=== PATIENT | female | born 1940 | race Caucasian/White ===

== ENCOUNTER 2018-11-01 14:07 | Emergency (ER) | payer MEDICARE ==
[~2018-11-01] VITALS: Ht 170.2 cm; Wt 89.1 kg
[2018-11-01 15:39] LABS: HEMATOCRIT 39.4 % (37.0-47.0); HEMOGLOBIN 13.2 g/dl (12.0-16.0); IMMATURE GRANULOCYTES 0.7 % (0.0-5.0); MEAN CELL VOLUME 97.5 fL CALC (80.0-100.0); MEAN CORPUSCULAR HGB 32.7 pG CALC (26.0-32.0); MEAN CORPUSCULAR HGB CONC 33.5 g/L CALC (32.0-36.0); NEUT# 9.09 thou/uL (2.00-7.15); RED BLOOD COUNT 4.04 mill/uL (4.20-5.60); RED CELL DISTRI WIDTH 13.7 % (11.5-15.5)
[2018-11-01 16:06] LABS: CREATININE 1.2 mg/dL (0.5-1.0); POTASSIUM 3.8 mmol/l (3.5-5.1)
[2018-11-01 16:14] LABS: URINE BILIRUBIN - DIPSTICK NEGATIVE (NEGATIVE); URINE BLOOD DIPSTICK NEGATIVE (NEGATIVE); URINE COLOR YELLOW; URINE GLUCOSE - DIPSTICK NEGATIVE (NEGATIVE); URINE KETONE NEGATIVE (NEGATIVE); URINE LEUK ESTERASE NEGATIVE (NEGATIVE); URINE NITRITE - DIPSTICK NEGATIVE (Negative); URINE PROTEIN - DIPSTICK NEGATIVE (NEG-TRACE); URINE UROBILINOGEN - DIPSTICK 0.2 E.U./dL (0.2)
[2018-11-01 16:39] VITALS: BP 165/70
[2018-11-01] MEDS ORDERED: LEVOTHYROXIN75 MC1 PO (18:35)
[2018-11-01] MEDS ORDERED: ASPIRIN81 MG PO (18:36)
[2018-11-01] MEDS ORDERED: LITHIUM CARB300 M2 PO (18:36)
[2018-11-01] MEDS ORDERED: B121000 MCG PO (18:37)
[2018-11-01] MEDS ORDERED: D31000 UNIT PO (18:37)
[2018-11-01] MEDS ORDERED: ATORVASTATIN CA40 MG PO (18:38)
== END 2018-11-01 16:50 | disposition home or self-care (01) ==
LOC: ED 14:07
PROVIDERS: Family Medicine
DX: R32 Unspecified urinary incontinence (principal); R19.7 Diarrhea, unspecified; R35.0 Frequency of micturition; R00.1 Bradycardia, unspecified; Z04.3 Encounter for examination and observation following other accident; F03.90 Unspecified dementia, unspecified severity, without behavioral disturbance, psychotic disturbance, mood disturbance, and anxiety; W18.39XA Other fall on same level, initial encounter; Y92.89 Other specified places as the place of occurrence of the external cause

== ENCOUNTER 2018-11-01 18:12 | Emergency (ER) | payer MEDICARE ==
[~2018-11-01] VITALS: Ht 170.2 cm; Wt 90.0 kg
[2018-11-01] MEDS ORDERED: LEVOTHYROXIN75 MC1 PO (18:35)
[2018-11-01] MEDS ORDERED: ASPIRIN81 MG PO (18:36)
[2018-11-01] MEDS ORDERED: LITHIUM CARB300 M2 PO (18:36)
[2018-11-01] MEDS ORDERED: D31000 UNIT PO (18:37)
[2018-11-01] MEDS ORDERED: B121000 MCG PO (18:37)
[2018-11-01] MEDS ORDERED: ATORVASTATIN CA40 MG PO (18:38)
[2018-11-01 19:20] VITALS: BP 187/80
== END 2018-11-01 19:35 | disposition home or self-care (01) ==
LOC: ED 18:12
DX: Z04.3 Encounter for examination and observation following other accident (principal); W18.39XA Other fall on same level, initial encounter; Y92.89 Other specified places as the place of occurrence of the external cause; F03.90 Unspecified dementia, unspecified severity, without behavioral disturbance, psychotic disturbance, mood disturbance, and anxiety

== ENCOUNTER 2018-11-03 12:31 | Emergency (ER) | payer MEDICARE ==
[~2018-11-03] VITALS: Ht 170.2 cm; Wt 100.0 kg
[~2018-11-03 12:31] MED LIST: ASPIRIN81 MG PO; ATORVASTATIN CA40 MG PO; B121000 MCG PO; D31000 UNIT PO; LEVOTHYROXIN75 MC1 PO; LITHIUM CARB300 M2 PO
[2018-11-03 13:51] LABS: ALBUMIN 4.2 g/dL (3.2-5.0); BILIRUBIN, TOTAL 1.5 mg/dL (0.0-1.4); CREATININE 1.5 mg/dL (0.5-1.0); POTASSIUM 4.5 mmol/l (3.5-5.1); TOTAL PROTEIN 7.1 g/dL (6.3-8.2)
[2018-11-03 14:03] LABS: HEMATOCRIT 40.7 % (37.0-47.0); HEMOGLOBIN 13.4 g/dl (12.0-16.0); IMMATURE GRANULOCYTES 0.5 % (0.0-5.0); MEAN CORPUSCULAR HGB 32.6 pG CALC (26.0-32.0); MEAN CORPUSCULAR HGB CONC 32.9 g/L CALC (32.0-36.0); NEUT# 8.85 thou/uL (2.00-7.15); RED BLOOD COUNT 4.11 mill/uL (4.20-5.60); RED CELL DISTRI WIDTH 13.6 % (11.5-15.5)
[2018-11-03] MEDS ORDERED: UNKNOWN CHOLESTEROL (17:18)
[2018-11-03 17:20] LABS: URINE BILIRUBIN - DIPSTICK NEGATIVE (NEGATIVE); URINE BLOOD DIPSTICK TRACE-INTACT (NEGATIVE); URINE COLOR YELLOW; URINE GLUCOSE - DIPSTICK NEGATIVE (NEGATIVE); URINE KETONE NEGATIVE (NEGATIVE); URINE PROTEIN - DIPSTICK NEGATIVE (NEG-TRACE); URINE UROBILINOGEN - DIPSTICK 0.2 E.U./dL (0.2)
[2018-11-03 17:21] LABS: URINE LEUK ESTERASE MODERATE (NEGATIVE); URINE NITRITE - DIPSTICK POSITIVE (Negative)
[2018-11-03 17:23] LABS: BARBITURATES NEGATIVE (NEGATIVE); COCAINE NEGATIVE (NEGATIVE); METHADONE NEGATIVE (NEGATIVE); TETRAHYDROCANNABIONOL NEGATIVE (NEGATIVE); TRICYLIC ANTIDEPRESSANTS NEGATIVE (NEGATIVE)
[2018-11-03 17:24] LABS: OXCYCODONE NEGATIVE (NEGATIVE)
[2018-11-03 17:33] LABS: URINE BACTERIA MANY hpf; URINE RBC 0-2 RBC/hpf (0-5); URINE SQUAMOUS EPITHELIAL CELL FEW EPI/hpf (0-FEW)
[2018-11-03 18:42] VITALS: BP 192/77
== END 2018-11-03 18:35 | disposition short-term general hospital (02) ==
LOC: ED 12:31 → ED-I 13:00 → ED 18:35
PROVIDERS: Emergency Medicine
DX: R41.82 Altered mental status, unspecified (principal); R00.1 Bradycardia, unspecified; N39.0 Urinary tract infection, site not specified; F03.90 Unspecified dementia, unspecified severity, without behavioral disturbance, psychotic disturbance, mood disturbance, and anxiety; F31.9 Bipolar disorder, unspecified; B96.20 Unspecified Escherichia coli [E. coli] as the cause of diseases classified elsewhere

== ENCOUNTER 2019-01-23 17:49 | Inpatient (IN) | payer MEDICARE ==
[~2019-01-23] VITALS: Ht 170.2 cm; Wt 95.0 kg
[~2019-01-23 17:49] MED LIST changes: +UNKNOWN CHOLESTEROL
--- NOTE | 2019-01-23 17:49 | NUR ---
PT TO ROOM VIA EMS STRETCHER.
--- NOTE | 2019-01-23 18:40 | NUR ---
MARIAMA CARE COMPLETED, URINE SAMPLE COLLECTED VIA STRAIGHT CATH, URINE SAMPLE NOTED TO BE PALE YELLOW, CLOUDY. PATIENT TOLERATED WELL.
[2019-01-23 18:44] LABS: HEMATOCRIT 37.2 % (37.0-47.0); HEMOGLOBIN 11.9 g/dl (12.0-16.0); IMMATURE GRANULOCYTES 0.6 % (0.0-5.0); MEAN CELL VOLUME 101.1 fL CALC (80.0-100.0); MEAN CORPUSCULAR HGB 32.3 pG CALC (26.0-32.0); NEUT# 7.58 thou/uL (2.00-7.15); RED BLOOD COUNT 3.68 mill/uL (4.20-5.60); RED CELL DISTRI WIDTH 14.1 % (11.5-15.5)
[2019-01-23 18:51] LABS: URINE BILIRUBIN - DIPSTICK NEGATIVE (NEGATIVE); URINE BLOOD DIPSTICK MODERATE (NEGATIVE); URINE COLOR YELLOW; URINE GLUCOSE - DIPSTICK NEGATIVE (NEGATIVE); URINE KETONE NEGATIVE (NEGATIVE); URINE PROTEIN - DIPSTICK 100 mg/dL (NEG-TRACE); URINE UROBILINOGEN - DIPSTICK 0.2 E.U./dL (0.2)
[2019-01-23 18:52] LABS: URINE LEUK ESTERASE MODERATE (NEGATIVE); URINE NITRITE - DIPSTICK POSITIVE (Negative)
[2019-01-23 19:00] LABS: URINE BACTERIA MANY hpf; URINE RBC TNTC RBC/hpf (0-5); URINE SQUAMOUS EPITHELIAL CELL FEW EPI/hpf (0-FEW); URINE WBC TNTC WBC/hpf (0-5)
[2019-01-23 19:02] LABS: ALBUMIN 4.1 g/dL (3.2-5.0); CREATININE 1.4 mg/dL (0.5-1.0); POTASSIUM 4.4 mmol/l (3.5-5.1); TOTAL PROTEIN 7.4 g/dL (6.3-8.2)
--- NOTE | 2019-01-23 19:20 | NUR ---
PATIENT RETURNS FROM CT SCAN. TEMP 101.5. UPDATED ON WAIT TIME. VERBAL UNDERSTANDING. WILL CONTINUE TO MONITOR.
--- NOTE | 2019-01-23 19:30 | NUR ---
BEDSIDE REPORT GIVEN TO ENRIKE CARRASCO. CARE RELINQUISHED.
--- NOTE | 2019-01-23 19:35 | NUR ---
IN ROOM INTRODUCED SELF TO PT. NO C/O.
[2019-01-23] MEDS ORDERED: ATORVASTATIN CA40 MG PO (21:21)
[2019-01-23] MEDS ORDERED: CLONAZEPAM0.5 M1 PO (21:22)
--- NOTE | 2019-01-23 21:22 | NUR ---
PT. BP 92/50 MD AWARE.
[2019-01-23] MEDS ORDERED: ZESTRIL5 M1 PO (21:23)
[2019-01-23] MEDS ORDERED: KLONOPIN0.5 MG PO (21:23)
[2019-01-23] MEDS ORDERED: ZYPREXA PO (21:24)
--- NOTE | 2019-01-23 21:47 | NUR ---
Admission Note Report Given to: SHERWIN MALIN Transported by: Wheelchair X Stretcher Transported with: X Nurse Transporter X Patent IV O2 Representative Personal Service
--- NOTE | 2019-01-23 21:48 | NUR ---
PT. TO [facility] VIA STRETCHER.
--- NOTE | 2019-01-23 22:00 | NUR ---
PT ARRIVED TO FLOOR VIA STRETCHER. PT ACCOMPANIED BY ER STAFF AND . PT ALERT AND ORIENTED TO SELF, CONFUSION NOTED. PT NON-AMBULATORY AT THIS TIME R/T WEAKNESS. PT TRANSFERED FROM STRETCHER TO BED X4 PERSON ASSIST. PT DENIES ANY PAIN OR DISCOMFORT. INCONTINENT OF BOWEL AND BLADDER AT THIS TIME. MARIAMA-CARE PROVIDED ALONG WITH LINEN CHANGE. IV SITES APPEAR HEALTHY. SKIN INTACT. ORIENTED PT TO ROOM AND CALL LIGHT SYSTEM. BED ALARM FOR SAFETY. DISCUSSED POC AND SAFETY PRECAUTIONS WITH PT AND , BOTH VERBALIZED UNDERSTANDING. CALL LIGHT WITHIN REACH. WILL CONTINUE TO MONITOR.
[2019-01-23 22:15] VITALS: BP 96/51
[2019-01-24] VITALS (10 sets, daily range): BP systolic 70–137; BP diastolic 40–68
--- NOTE | 2019-01-24 02:25 | NUR ---
PT FOUND TO BED UNRESPONSIVE TO VERBAL STIMULI. VS OBTAINED PT BP 70/43 WITH HR OF 42. PT PLACED IN TRANDELENBURG POSITION. ER PHYSICIAN NOTIFIED AND ORDERS RECIEVED FOR 1 LITER BOLUS OF NS. PT RESPONSIVE TO PAINFUL STIMULI.
--- NOTE | 2019-01-24 03:33 | NUR ---
BOLUS COMPLETE. PT MORE ALERT TO VERBAL STIMULI AND ABLE TO ANSWER QUESTIONS, ELECTROMYOGRAPHIC TECHNICIAN STRONG AND EQUAL. RESPIRATIONS EVEN AND UNLABORED. PT REMAINS IN TRENDELENBURG POSITION. BP CURRENTLY 97/58 AND HR 55. NOTIFIED PLATING TECHNICIAN PHYSICIAN NEW ORDERS RECIEVED. MANAGER LPN WILL INIATE ONCE PROFILED FROM PHARMACY AND CONTINUE TO MONITOR.
--- NOTE | 2019-01-24 04:32 | NUR ---
SECOND BOLUS COMPLETE. PT REMAINS IN TRENDELENBURG POSITION. MANUAL BP 98/50 HR 55. PT ALERT AND RESPONSIVE. WILL CONTINUE TO MONITOR.
[2019-01-24 05:03] LABS: HEMATOCRIT 31.4 % (37.0-47.0); IMMATURE GRANULOCYTES 0.5 % (0.0-5.0); MEAN CORPUSCULAR HGB 32.8 pG CALC (26.0-32.0); MEAN CORPUSCULAR HGB CONC 31.5 g/L CALC (32.0-36.0); RED BLOOD COUNT 3.02 mill/uL (4.20-5.60); RED CELL DISTRI WIDTH 13.5 % (11.5-15.5)
[2019-01-24 05:27] LABS: HEMOGLOBIN 9.9 g/dl (12.0-16.0)
[2019-01-24 05:28] LABS: BAND 8 % (0-8); MANUAL DIFFERENTIAL YES; PLATELET COUNT 159 thou/uL (130-400)
[2019-01-24 05:29] LABS: HYPOCHROMIA FEW; MICROCYTOSIS FEW; PLATELET ESTIMATE NORMAL
[2019-01-24 06:02] LABS: ALBUMIN 2.6 g/dL (3.2-5.0); BILIRUBIN, TOTAL 0.5 mg/dL (0.0-1.4); CREATININE 1.8 mg/dL (0.5-1.0); MAGNESIUM 1.9 mg/dL (1.6-2.3); POTASSIUM 4.4 mmol/l (3.5-5.1)
--- NOTE | 2019-01-24 07:08 | NUR ---
PT RESTING IN BED IVF INFUSING. PT A&Ox1. BED ALARM IN PLACE FOR SAFETY. DISCUSSED POC, PT VERBALIZED UNDERSTANDING ABLE TO OBEY COMMANDS. VSS, ASSESSMENT COMPLETED AT THIS TIME. CALL LIGHT IN REACH,CONTINUE TO MONITOR.
--- NOTE | 2019-01-24 08:37 | NUR ---
PT IN BED, C/O ANXIOUSNESS, PT IS TEARFUL. AND C/O PAIN MEDICATED WITH TYLENOL AND XANAX.PT HAVING TREMORS.PT HAD A BM, BELT LOOP MACHINE OPERATOR TO BEDSIDE, BED BATH PROVIDED. NEW [place] PLACED FOR PT. DAMASO LIGHT IN REACH,CONTINUE TO MONITOR.
--- NOTE | 2019-01-24 09:52 | NUR ---
PT RESTING IN BED, WITH EYES CLOSED, NO SIGNS OF DISTRESS NOTED, RESP EVEN AND UNLABORED. CALL LIGHT IN REACH,CONTINUE TO MONITOR.
--- NOTE | 2019-01-24 13:05 | NUR ---
PT STATES SHE WOULD LIKE TO GET OUT OF BED, ASSISTED BY COMMUNITY ASSOCIATE TO PLACE PT IN RECLINER AT BEDSIDE. ROOM. CALL LIGHT IN REACH,CONTINUE TO MONITOR.
--- NOTE | 2019-01-24 15:01 | NUR ---
PT ASSISTED BACK TO BED, NO SIGNS OF DISTRESS NOTED, RESP EVEN AND UNLABORED. CALL LIGHT IN REACH,CONTINUE TO MONITOR
--- NOTE | 2019-01-24 17:59 | NUR ---
PT EATING DINNER, AT BEDSIDE. CALL LIGHT IN REACH,CONTINUE TO MONITOR.
--- NOTE | 2019-01-24 20:36 | NUR ---
PT MEDICATED ORDERS PROVIDE AND ASSISTED TO BSC. AT BEDSIDE. INSTRUCTED TO CALL WHEN PT IS FINSIHED. REORIENTED PT TO SAFETY MEASURES NOT TO GET UP WITHOUT ASSISTANCE.
--- NOTE | 2019-01-25 03:00 | NUR ---
PT ASSISTED TO BEDSIDE COMMODE, BRIEF WAS VERY FULL OF URINE, MARIAMA CARE PROVIDED TO PT W/FRESH BRIEF PLACED ON PT. PT IS WEAK UPON AMBULATING JUST TO [facility] FROM SIDE OF BED. PT INCONTINENT OF URINE SHE IS TRANSFERRING. PT APPEARS CONFUSED AT THIS TIME CALLING OUT TO HER . ATTEMPTS WERE MADE TO REORIENT PT TO CIRCUMSTANCES AND TIME, SHE IS NOT AGITATED, JUST SOMEWHAT CONFUSED STILL. WILL CONTINUE TO REORIENT NEEDED. PT LEFT BACK IN BED AND BED ALARM ON W/CALL LIGHT W/IN REACH OF PT. LIGHTS ON LOW WITH TV ON LOW.
[2019-01-25 04:15] VITALS: BP 130/69
--- NOTE | 2019-01-25 05:25 | NUR ---
PT MEDICATED ORDERS PROVIDE, APPLESAUCE PROVIDED TO ASSIST HER SWALLOWING PILL FOLLOWED BY PO WATER. PT CONFUSED, BUT NOT AGITATED. PT REORIENTED TO CIRCUMSTANCE AND LOCATION. SHE PROCEEDED TO RETURN TO SLEEP I WAS LEAVING ROOM.
[2019-01-25 05:27] LABS: HEMATOCRIT 31.2 % (37.0-47.0); HEMOGLOBIN 9.8 g/dl (12.0-16.0); IMMATURE GRANULOCYTES 0.7 % (0.0-5.0); MEAN CELL VOLUME 103.3 fL CALC (80.0-100.0); MEAN CORPUSCULAR HGB 32.5 pG CALC (26.0-32.0); MEAN CORPUSCULAR HGB CONC 31.4 g/L CALC (32.0-36.0); NEUT# 6.36 thou/uL (2.00-7.15); RED BLOOD COUNT 3.02 mill/uL (4.20-5.60); RED CELL DISTRI WIDTH 13.4 % (11.5-15.5)
[2019-01-25 05:42] LABS: CREATININE 1.7 mg/dL (0.5-1.0); MAGNESIUM 1.9 mg/dL (1.6-2.3); POTASSIUM 4.3 mmol/l (3.5-5.1)
[2019-01-25 07:34] VITALS: BP 127/73
--- NOTE | 2019-01-25 07:34 | NUR ---
PT SITTING ON SIDE OF BED, AFTER BEING ASSISSTED TO BSC FOR BM. PT ALERT AND ORIENTED X3. DISCUSSED POC, PT VERBALIZED UNDERSTANDING. RESP EVEN AND UNLABORED. ASSESSMENT COMPLETED AT THIS TIME. CALL LIGHT IN REACH,CONTINUE TO MONITOR.
--- NOTE | 2019-01-25 09:15 | NUR ---
PT ASSISTED TO BSC, PT BECAME TEARFUL. AND APPEARS ANXIOUS. MEDICATED WITH XANAX. CALL LIGHT IN REACH,CONTINUE TO MONITOR.
--- NOTE | 2019-01-25 10:01 | NUR ---
PRELIMINARY BLOOD CULTURE RESULTS CALLED TO PENG YANEZ, GRAM (-) RODS IN ONE SET. PATIENT HAS A (+) URINE CULTURE WITH E.COLI GROWING. THE PATIENT IS CURRENTLY ON ROCEPHIN 1 GRAM BID. NO NEW ORDERRS AT THIS TIME.
--- NOTE | 2019-01-25 11:42 | NUR ---
PT RESTING IN BED, AT BEDSIDE. CALL LIGHT IN REACH,CONTINUE TO MONITOR.
--- NOTE | 2019-01-25 15:11 | NUR ---
PT RESTING IN BED WITH EYES CLOSED, NO SIGNS OF DISTRESS NOTED,RESP EVEN AND UNLABORED. CALL LIGHT IN REACH,CONTINUE TO MONITOR.
[2019-01-25 15:55] VITALS: BP 131/97
--- NOTE | 2019-01-25 19:10 | NUR ---
REPORT RECIEVED FROM KIMO LUCIO. PT RESTING IN BED, AT BEDSIDE. ASKING THAT WE APPLY HIS WIFES HEMROID CREAM TONIGHT. HEMROID CREAM TO BE APPLIED. BED ALARM ACTIVE FOR PT SAFETY.
[2019-01-25 19:20] VITALS: BP 150/72
--- NOTE | 2019-01-26 02:19 | NUR ---
PT RESTING IN BED WITH EYES CLOSED. RESPIRATIONS EVEN AND UNLABORED. BED ALARM ACTIVE FOR PT SAFETY. WILL CONTINUE TO MONITOR.
[2019-01-26 04:00] VITALS: BP 157/78
--- NOTE | 2019-01-26 04:48 | NUR ---
PT RESTING IN BED WITH EYES CLOSED. RESPIRATIONS EVEN AND UNLABORED. SAFETY PRECAUTIONS IN PLACE. BED ALARM ACTIVE FOR PT SAFETY. WILL CONTINUE TO MONITOR.
[2019-01-26 05:35] LABS: HEMATOCRIT 33.8 % (37.0-47.0); HEMOGLOBIN 10.5 g/dl (12.0-16.0); IMMATURE GRANULOCYTES 0.9 % (0.0-5.0); MEAN CELL VOLUME 103.4 fL CALC (80.0-100.0); MEAN CORPUSCULAR HGB 32.1 pG CALC (26.0-32.0); MEAN CORPUSCULAR HGB CONC 31.1 g/L CALC (32.0-36.0); NEUT# 4.82 thou/uL (2.00-7.15); RED BLOOD COUNT 3.27 mill/uL (4.20-5.60); RED CELL DISTRI WIDTH 13.4 % (11.5-15.5)
[2019-01-26 06:10] LABS: CREATININE 1.7 mg/dL (0.5-1.0); POTASSIUM 4.1 mmol/l (3.5-5.1)
--- NOTE | 2019-01-26 07:15 | NUR ---
REPORT RECEIVED FROM ENRIKE ODONNELL;PT APPEARS TO BE SLEEPING IN LEFT SIDE LAYING POSITION;RESPIRATIONS EVEN AND UNLABORED ON RA;NO S/S OF DISTRESS NOTED;FALL PRECAUTIONS IN PLACE WITH BED ALARM ON FOR PT SAFETY;CALL LIGHT IN REACH;WILL CONTINUE TO MONITOR
--- NOTE | 2019-01-26 08:00 | NUR ---
PT RESTING IN SUPINE POSITION, ALERT TO SELF ONLY;PT DROWSY, REQUESTING TO GO BACK TO SLEEP;VS OBTAINED AND ASSESSMENT COMPLETED;RESPIRATIONS SHALLOW ON RA;ABDOMEN DISTENDED/SOFT ON PALPATION AND ACTIVE IN ALL 4 QUADRANTS;WEAK PEDAL PULSES;SKIN INTACT;#18G TO LAC INFUSING NS @ 75ML/HR,SITE APPEARS HEALTHY;PT DENIES ANY ADDITIONAL NEEDS AT THIS TIME AND IS ENCOURAGED TO CALL FOR ASSISTANCE IF NEEDED;FALL PRECAUTIONS IN PLACE WITH BED ALARM ON FOR PT SAFETY;CALL LIGHT IN REACH;WILL CONTINUE TO MONITOR
[2019-01-26 08:07] VITALS: BP 134/63
--- NOTE | 2019-01-26 11:00 | NUR ---
PHYSICAL THERAPY AT BEDSIDE WORKING WITH PT.SPOUSE AT BEDSIDE.
--- NOTE | 2019-01-26 12:45 | NUR ---
PT OOB RESTING IN RECLINER WITH SPOUSE AT BEDSIDE, CONFUSED;RESPIRATIONS EVEN AND UNLABORED ON RA;PT DENIES ANY CURRENT PAIN OR NEEDS;IV SITE TO LAC REMAINS PATENT INFUSING NS WITH EASE;BED ALARM ON FOR PT SAFETY;CALL LIGHT IN REACH;WILL CONTINUE TO MONITOR
[2019-01-26 16:00] VITALS: BP 127/62
--- NOTE | 2019-01-26 16:45 | NUR ---
PT OOB RESTING IN RECLINER;RESPIRATIONS EVEN AND UNLABORED ON RA;PT DENIES ANY CURRENT PAIN OR NEEDS;IV SITE TO LAC REMOVED DUE TO LEAKING, NEW #24G STARTED TO RAC ON FIRST ATTEMPT BY THIS WRITTER, IV FLUIDS RE-STARTED AND PT TOLERATED WELL;FALL PRECAUTIONS IN PLACE WITH BED ALARM ON FOR SAFETY;CALL LIGHT IN REACH;WILL CONTINUE TO MONITOR
--- NOTE | 2019-01-26 19:00 | NUR ---
RECEIVED REPORT FROM NURSE NAZANIN ALANIS SITTING IN BED, EVEN UNLABORED BREATHING, IN ROOM, CALL LIGHT WITHIN REACH.
[2019-01-26 19:31] VITALS: BP 148/54
--- NOTE | 2019-01-26 20:00 | NUR ---
PATIENT SITTING IN BED, IN ROOM, DENIES PAIN OR DISCOMFORTS, WITH AN ONGOING IV OF NS @75CC/HR INFUSING WELL ON RAC G24, LAST BM 01/26. PATIENT ALERT TO SELF AND TIME ONLY, BED ALARM IN PLACE.
[2019-01-26 23:00] VITALS: BP 148/65
--- NOTE | 2019-01-27 00:33 | NUR ---
PATIENT APPEARS TO BE SLEEPING, EYES CLOSED, WITH EVEN UNLABORED BREATHING CALL LIGHT WITHIN REACH
--- NOTE | 2019-01-27 04:04 | NUR ---
PATIENT APPEARS TO BE SLEEPING, EYES CLOSED WITH EVEN UNLABORED BREATHING CALL LIGHT WITHIN REACH.
[2019-01-27 05:19] VITALS: BP 138/50
[2019-01-27 05:39] LABS: HEMATOCRIT 33.2 % (37.0-47.0); HEMOGLOBIN 10.1 g/dl (12.0-16.0); IMMATURE GRANULOCYTES 1.3 % (0.0-5.0); MEAN CELL VOLUME 106.4 fL CALC (80.0-100.0); MEAN CORPUSCULAR HGB 32.4 pG CALC (26.0-32.0); MEAN CORPUSCULAR HGB CONC 30.4 g/L CALC (32.0-36.0); NEUT# 3.5 thou/uL (2.00-7.15); RED BLOOD COUNT 3.12 mill/uL (4.20-5.60); RED CELL DISTRI WIDTH 13.3 % (11.5-15.5)
[2019-01-27 06:06] LABS: ALBUMIN 2.7 g/dL (3.2-5.0); BILIRUBIN, TOTAL 0.5 mg/dL (0.0-1.4); CREATININE 1.5 mg/dL (0.5-1.0); POTASSIUM 4.3 mmol/l (3.5-5.1); TOTAL PROTEIN 5.3 g/dL (6.3-8.2)
--- NOTE | 2019-01-27 08:50 | NUR ---
PT SITTING IN RECLINER. PT IS A&O X2 AND CONFUSED. PT IS STATING I HAVE GLASS IN MY ARMS WITH YARN. ORIENT PT. PT DENIES PAIN. IVF INFUSING WELL . BED ALARM IN PLACE FOR SAFETY.
[2019-01-27 08:57] VITALS: BP 148/62
--- NOTE | 2019-01-27 11:42 | NUR ---
PT IS SITTING IN RECLINER WITH NO S/S OF DISTRESS NOTED. SETUP PT FOR LUNCH. PT STATED WILL EAT LATER. BED ALARM IN PLACE.
--- NOTE | 2019-01-27 12:11 | NUR ---
PT WAS SEEN FOR GT AND FA X 25 MINS. SHE WAS SEEN SITTING ON THE EDGE OF BED WITH NRSNG IN THE ROOM. PT WAS HALLUCINATING AND WAS STATING THAT THERE WAS PIECES OF GLASS IN HER FOREARMS, SHE WAS UPSET ABOUT THIS. TRIED TO PACIFY THE PATIENT UNTIL SHE AGREED TO PARTICIPATE WITH PHYSICAL THERAPY. SHE DID BETTER ON SIT TO STAND TODAY WHICH ONLY REQUIRED CGA. SHE THEN AMBULATED WITH RW AND CGA INSIDE THE ROOM THEN TO THE HALLWAY ~ 60 FT. X 2 WITH CONSTANT VERBAL CUES AND DIRECTION GUIDING. PT OCCASIONALLY REPORTED FEELING SHORT OF BREATH WHICH RESOLVED QUICKLY SHE WAS INSTRUCTED TO DO DEEP BREATHING. SHE WAS ASSITED TO THE RECLINER AT THE END OF TX. ELEVATED THE LEG REST, CALL DU IN HER LAP. REATTACHED THE FALL STRING/CHAIR ALARM. LEFT PT WITH NRSNG IN THE ROOM.
[2019-01-27 15:58] VITALS: BP 113/75
--- NOTE | 2019-01-27 16:03 | NUR ---
PT IS RESTING IN BED WITH NO S/S OF DISTRESS NOTED. SISTER IN ROOM. CALL LIGHT IN REACH.
--- NOTE | 2019-01-27 20:30 | NUR ---
PT IS IN BED W/SISTER AT BEDSIDE. NO S/O DISTRESS NOTED AT THIS TIME. CALL LIGHT AT BEDSIDE. INSTRUCTED PT AND SISTER TO CALL IF ANY NEEDS ARISE. BEDDING PROVIDED FOR SISTER.
--- NOTE | 2019-01-27 22:37 | NUR ---
PT MEDICATED ORDERS PROVIDE AND REPOSITIONED. SISTER IS AT BEDSIDE. NO S/O DISTRESS NOTED. PT DENIED AGITATION OR NEED FOR ANXIETY MEDICATION. POC DISCUSSED. IV FLUIDS ARE RUNNING PER ORDERS/SITE APPEARS HEALTHY.
--- NOTE | 2019-01-28 04:45 | NUR ---
PT IS SLEEPING AT THIS TIME. NO S/O DISTRESS NOTED. SISTER IS AT BEDSIDE. CALL LIGHT AT SIDE.
--- NOTE | 2019-01-28 05:09 | NUR ---
PATIENT REFUSED TO BE CHANGED AT THIS TIME STATING SHE ALREADY GOT UP TO PEE. PATIENTS SISTER ALSO STATED SHE HELPED PATIENT UP TO BSC. NURSE MADE AWARE.
[2019-01-28 05:31] LABS: HEMATOCRIT 27.8 % (37.0-47.0); HEMOGLOBIN 9.1 g/dl (12.0-16.0); IMMATURE GRANULOCYTES 1.8 % (0.0-5.0); MEAN CELL VOLUME 100.4 fL CALC (80.0-100.0); MEAN CORPUSCULAR HGB 32.9 pG CALC (26.0-32.0); MEAN CORPUSCULAR HGB CONC 32.7 g/L CALC (32.0-36.0); NEUT# 3.66 thou/uL (2.00-7.15); RED BLOOD COUNT 2.77 mill/uL (4.20-5.60); RED CELL DISTRI WIDTH 13.1 % (11.5-15.5)
[2019-01-28 06:12] LABS: ALBUMIN 2.7 g/dL (3.2-5.0); BILIRUBIN, TOTAL 0.3 mg/dL (0.0-1.4); CREATININE 1.4 mg/dL (0.5-1.0); MAGNESIUM 1.9 mg/dL (1.6-2.3); TOTAL PROTEIN 5.3 g/dL (6.3-8.2)
--- NOTE | 2019-01-28 06:32 | NUR ---
PT WAS SLEEPING I ENTERED THE ROOM, AWOKE TO MY VOICE. SHE FIRST REFUSED SYNTHROID STATING SHE DID NOT WANT TO TAKE IT, IT'S TOO EARLY AND SHE IS EATING WITH HER SISTER THIS MORNING, BUT SHE THEN CHANGED HER MIND. PT MEDICATED ORDERS PROVIDE. CALL LIGHT AT BEDSIDE. NO S/O DISTRESS. SISTER ASLEEP AT BEDSIDE.
--- NOTE | 2019-01-28 08:40 | NUR ---
REPORT WAS RECEIVED FROM VICENTA. PT IS SITTING IN RECLINER. ASSESSMENT DONE. PT IS A&O X2 BUT CONFUSED. PT DENIES PAIN AT THIS TIME. IVF INFUSING WELL. SISTER IN ROOM. CALL LIGHT IN REACH.
[2019-01-28 08:45] VITALS: BP 148/62
[2019-01-28 08:50] VITALS: BP 148/62
--- NOTE | 2019-01-28 11:35 | NUR ---
DR. CASTILLO DISCUSS POC WITH PT, AND SISTER. CALL LIGHT IN REACH.
--- NOTE | 2019-01-28 13:19 | NUR ---
Therapy was focused on fuctional activity for transfer training. Pt. was seated in chair when arrived into room. Sit to stand (Min A) w/ use of arm rest to ascend to standing position. Staic standing for 2 min (CGA) w/o LOB, ambulated 5 feet to commode (CGA). Descending to seated position (MIN A) to commode VC for proper hand placement as she descended to a seated position. Sit to stand (Min A) with use of bed railing to help ascend to standing position. Ambulted to chair (CGA) VC for proper hand placement as she descended to a seated position. IV line plugged in, tray table left by pt. side along w/ call sweet. pt was in chair in seated position, nurse was informed of therapy session.
[2019-01-28] MEDS ORDERED: CIPROFLOXACN500 MG PO (14:18)
--- NOTE | 2019-01-28 16:17 | NUR ---
Discharge instructions given. Patient verbalizes understanding of same. Discharged in stable condition via Wheelchair to Home with family. All belongings sent with pt.
== END 2019-01-28 16:18 | disposition home or self-care (01) | DRG 871 ==
LOC: ED 17:49 → ED-I 17:55 → ED 20:14 → MS2 20:15
PROVIDERS: Emergency Medicine; Nurse Practitioner Family; ADMIT Internal Medicine Nephrology; ATTEND Internal Medicine Nephrology
DX: A41.51 Sepsis due to Escherichia coli [E. coli] (principal); G93.41 Metabolic encephalopathy; N39.0 Urinary tract infection, site not specified; N17.9 Acute kidney failure, unspecified; E87.0 Hyperosmolality and hypernatremia; R65.20 Severe sepsis without septic shock; E03.9 Hypothyroidism, unspecified; G30.9 Alzheimer's disease, unspecified; F02.80 Dementia in other diseases classified elsewhere, unspecified severity, without behavioral disturbance, psychotic disturbance, mood disturbance, and anxiety; E78.5 Hyperlipidemia, unspecified; F31.9 Bipolar disorder, unspecified; N18.3 Chronic kidney disease, stage 3 (moderate); K64.4 Residual hemorrhoidal skin tags; E86.0 Dehydration
CPT/HCPCS: J0131; J1650

== ENCOUNTER 2020-11-01 12:42 | Observation (INO) | payer MEDICARE ==
[~2020-11-01] VITALS: Ht 157.5 cm; Wt 90.0 kg
[~2020-11-01 12:42] MED LIST changes: +CIPROFLOXACN500 MG PO; +CLONAZEPAM0.5 M1 PO; +KLONOPIN0.5 MG PO; +ZESTRIL5 M1 PO; +ZYPREXA PO
--- NOTE | 2020-11-01 12:58 | NUR ---
PT TO RADIOLOGY FOR CT SCAN
--- NOTE | 2020-11-01 13:20 | NUR ---
NEUROLOGIST SPOKE WITH PT AND SPOUSE VIA STROKE CART.
[2020-11-01 13:35] LABS: IMMATURE GRANULOCYTES 0.5 % (0.0-5.0); MEAN CELL VOLUME 103.1 fL CALC (80.0-100.0); MEAN CORPUSCULAR HGB 32.9 pG CALC (26.0-32.0); MEAN CORPUSCULAR HGB CONC 31.9 g/dL CAL (32.0-36.0); NEUT# 4.63 thou/uL (2.00-7.15); RED BLOOD COUNT 3.5 mill/uL (4.20-5.60); RED CELL DISTRI WIDTH 12.7 % (11.5-15.5)
[2020-11-01 13:37] LABS: HEMATOCRIT 36.1 % (37.0-47.0); HEMOGLOBIN 11.5 g/dl (12.0-16.0)
--- NOTE | 2020-11-01 13:45 | NUR ---
PT BACK FROM RADIOLY UNABLE TO DO CTA RELATED TO ALLERGY TO IVP DYE, PT ANXIOUS AND SPEECH GETS VERY STUTTERED, PT IS ALERT AND ORIENTED AND ABLE TO MOVE ALL EXTREMETIES.
[2020-11-01 13:49] LABS: PROTHROMBIN TIME 9.8 SECONDS (9.0-12.5)
[2020-11-01 13:53] LABS: ALKALINE PHOSPHATASE 81 u/l (38-126); BUN 17 mg/dL (8-23); BUN/CREATININE RATIO 13 (12-20 (CALC)); CHLORIDE 114 mmol/l (95-108); CREATININE 1.3 mg/dL (0.5-1.0); GFR 39 ML/MIN (>=60 (CALC)); GFR FOR AFR.AMER. 48 ML/MIN (>=60 (CALC)); POTASSIUM 4.4 mmol/l (3.5-5.1); SGOT/AST 23 u/l (9-36); SODIUM 142 mmol/l (137-146)
[2020-11-01 13:54] LABS: ALBUMIN 3.9 g/dL (3.2-5.0); ANION GAP 9 (6-22 (CALC)); BILIRUBIN, TOTAL 0.6 mg/dL (0.0-1.4); CARBON DIOXIDE 23 mmol/l (22-30); TOTAL PROTEIN 6.4 g/dL (6.3-8.2)
[2020-11-01] MEDS ORDERED: LEVOTHYROXIN88 MC1 PO (14:21)
[2020-11-01] MEDS ORDERED: LITHIUM CARB300 MG PO (14:23)
[2020-11-01] MEDS ORDERED: NITROFURANTN100 MG PO (14:24)
[2020-11-01] MEDS ORDERED: MAPAP500 MG PO (14:25)
[2020-11-01] MEDS ORDERED: CLONAZEPAM1 MG PO (14:28)
--- NOTE | 2020-11-01 14:35 | NUR ---
WHILE REVIEWING HER CARE SHE ADVISED ME THAT SHE HAS A BLADDER STIMULATOR AND CAN NOT HAVE AN MRI MD AND CHARGE NURSE NOTIFIED
--- NOTE | 2020-11-01 15:15 | NUR ---
PT CALM AND RESTING
--- NOTE | 2020-11-01 16:39 | NUR ---
REPORT CALLED AND ADVISED PT AND FAMILY SHE WILL BE MOVED TO HER ROOM
--- NOTE | 2020-11-01 16:50 | NUR ---
PT TRASNPORTED TO MED SURG ON TELE BOX FOR ADMIT, SPOUSE LEFT AT THIS TIME, ALL BELONGINGS SENT WITH PT
--- NOTE | 2020-11-01 16:56 | NUR ---
RECEIVED PATIENT FROM ED PATIENT ARRIVED ALERT AND ORIENTD X 3 DENIES PAIN. NEURO CHECKS WERE NEGATIVE UPON ARRIVAL. PATIENT VERY ANXIOUS AND CALM COMFORT TECHNIQUE USE TO CALM PATIENT DOWN. NO SKIN ISSUE NOTED PATIENT SIDERAIL ARE UP X 2 PATIENT ON TELE AND HEART RATE IS NOTE TO BE SINUS RANDALL AT THIS TIME. PATIENT MOVES ALL EXTREMITIES WELL AT THIS TIME. IV PATENT AND RUNNING AT 75 MLS PER HOUR. PATIENT ADVISED TO USE NURSE CALL LIGHT WHEN ASSISTANCE IS NEEDED.
[2020-11-01 17:00] VITALS: BP 146/56
[2020-11-01 19:00] VITALS: BP 166/37
--- NOTE | 2020-11-01 20:00 | NUR ---
PER OVERCOIL STEPPER IN ED, PTS RYTHM IS A SUSTAINED BRADYCARDIA WITH A RATE OF 38. UPON ENTERING PTS ROOM, PT IS LAYING IN BED IN SEMIFOWLERS POSITION, AWAKE AND ALERT. PT REPORTS HX OF LOW HEART RATE AND INTERNAL CARDIAC LOOP MONITOR. PHYSICAL ASSESMENT COMPLETED. APICAL RATE 46 bpm. PERIPHERAL PULSES PALPABLE. R-AC 20G PATENT, INFUSING NS @ 75ML/H. PT IS VISIBLY ANXIOUS, VERBALIZES ANXIETY WELL STATING SHE IS ANXIOUS ABOUT BEING IN THE HOSPITAL. ALLOWED PT TIME TO EXPRESS HER CONCERNS AND SPENT TIME AT BEDSIDE REASSURING PT AND ANSWERING QUESTIONS AND CONCERNS. PLAN OF CARE REVIEWED, PT VERBALIZES UNDERSTANDING AND DENIES QUESTIONS. NURSE SWALLOW EVAL COMPLETED AT BEDSIDE. PT POSITIONED IN HIGH FOWLERS, PT TOLERATED SIPS OF WATER WITH NO SIGNS OF ASPIRATION. PT DENIES FURTHER NEEDS AT THIS TIME. CALL DU WITHIN REACH, AGREES TO CALL PRN.
--- NOTE | 2020-11-01 20:15 | NUR ---
DR. JONES INFORMED OF PT'S SUSTAINED ASYMPTOMATIC BRADYCARDIA AND PT'S ASSESMENT FINDING, INCLUDING PASSED SWALLOW EVAL. ORDER IS TO CONTINUE TO MONITOR AND ADVANCE DIET TO CARDIAC WITH ASPIRATION PRECAUTIONS.
--- NOTE | 2020-11-01 20:30 | NUR ---
RECEIVED CALL FROM YOSELIN VANG, PT'S , WHO PROVIDED APPROPRIATE COMMUNICATION CODE. UPDATE ON PT'S STATUS AND CURRENT PLAN OF CARE PROVIDED. QUESTIONS ANSWERED. Citlaly TAJ DENIES FURTHER QUESTIONS AND VERBALIZES UNDERSTANDING.
[2020-11-01 21:26] LABS: URINE BILIRUBIN - DIPSTICK NEGATIVE (NEGATIVE); URINE BLOOD DIPSTICK NEGATIVE (NEGATIVE); URINE CLARITY CLEAR; URINE COLOR YELLOW; URINE GLUCOSE - DIPSTICK NEGATIVE (NEGATIVE); URINE KETONE NEGATIVE (NEGATIVE); URINE LEUK ESTERASE NEGATIVE (Negative); URINE NITRITE - DIPSTICK NEGATIVE (Negative); URINE PH 6.5 (4.5-8.0); URINE PROTEIN - DIPSTICK NEGATIVE (NEG-TRACE); URINE UROBILINOGEN - DIPSTICK 0.2 E.U./dL (0.2)
--- NOTE | 2020-11-01 21:45 | NUR ---
PT TOLERATES PILLS WHOLE, ONE BY ONE WITH SIPS H20 WHILE IN HIGH FOWLERS POSITION. PT DECLINES LITHIUM DOSE, STATES "I ONLY TAKE IT ONCE A DAY FOR THE LAST YEAR". DOSE HELD PER PT'S REQUEST. PT'S CALLED TO CONFIRM RX, NO ANSWER, VOICEMAIL LEFT WITH CALL BACK INSTRUCTIONS. DR. JONES INFORMED OF WHAT PT STATES AND CONFIRMATION PENDING FROM . ORDER TO CHANGE TO DAILY RECEIVED.
[2020-11-02] VITALS: BP 130/63
--- NOTE | 2020-11-02 00:15 | NUR ---
TROPONIN LEVEL DRAWN BY MCKENNA BEFORE SCHOOL.
--- NOTE | 2020-11-02 00:57 | NUR ---
TROPONIN RESULT RECEIVED AND REVIEWED. TROPONIN <0.012 ng/ml.
--- NOTE | 2020-11-02 01:52 | NUR ---
PT APPEARS TO BE SLEEPING COMFORTABLY, LAYING IN BED WITH EYES CLOSED, RESPIRATIONS REGULAR AND UNLABORED, NO APPARENT DISTRESS. CALL DU REMAINS WITHIN REACH.
[2020-11-02 04:00] VITALS: BP 131/60
--- NOTE | 2020-11-02 04:04 | NUR ---
PT APPEARS TO BE SLEEPING COMFORTABLY, LAYING IN BED WITH EYES CLOSED, RESPIRATIONS REGULAR AND UNLABORED, NO APPARENT DISTRESS. CALL DU REMAINS WITHIN REACH.
--- NOTE | 2020-11-02 05:28 | NUR ---
Moises CLAROS RN/ ED CHARGE NURSE CALLS TO REPORT PT'S REMAINS SB WITH RATE LOW 32. PT AWAKE, ALERT, ASYMPTOMATIC, WATCHING TV. OFFERED PT COFFEE, PT AGREES. EKG ORDERED FOR EVAL BY PROVIDER THIS AM.
[2020-11-02 06:29] LABS: HEMATOCRIT 34.5 % (37.0-47.0); HEMOGLOBIN 10.7 g/dl (12.0-16.0); IMMATURE GRANULOCYTES 0.5 % (0.0-5.0); MEAN CELL VOLUME 104.9 fL CALC (80.0-100.0); MEAN CORPUSCULAR HGB 32.5 pG CALC (26.0-32.0); NEUT# 3.4 thou/uL (2.00-7.15); RED BLOOD COUNT 3.29 mill/uL (4.20-5.60); RED CELL DISTRI WIDTH 12.7 % (11.5-15.5)
[2020-11-02 06:53] LABS: ALBUMIN 3.2 g/dL (3.2-5.0); BILIRUBIN, TOTAL 0.7 mg/dL (0.0-1.4); CHOLESTEROL HDL RATIO 2.2 (<4.4 (CALC)); CREATININE 1.2 mg/dL (0.5-1.0); POTASSIUM 4.2 mmol/l (3.5-5.1); TOTAL PROTEIN 5.4 g/dL (6.3-8.2)
[2020-11-02 08:06] VITALS: BP 136/54
--- NOTE | 2020-11-02 08:06 | NUR ---
RECIEVED REPORT FROM ENRIKE PARK. PT RESTING IN SEMI FOWLERS POSITION UPON ENTERING ROOM. INTODUCED SELF TO PT AND DICUSSED POC. PT IS A/O X3. ASSESSMENT AQND VITALS COMPLETED. BP 136/54, HR 40, O2 100% ON ROOM AIR. RESPIRTIONS ARE LABORED, PT GRUNTING WHILE BREATHING. PT DENIES SOB. HEART RHYTHM NORMAL WITH TELE IN PLACE, SB WITH 1 DEGREE AVB. BOWEL SOUNJDS ARE ACTIVE, LAST REPORTED BM 11/01/20. RADIAL AND PEDAL PULSES ARE STRONG.#20G IN RAC INFUSING WITH IVF PER ORDER, SITE APPEARS HEALTHY AND PATENT. PT COMPLAINS OF 6/10 PAIN IN FEET. PT REFPORTS FEET ARE BLEEDING. BLOOD NOTED ON SHEETS BUT NONE ON FEET. TYLENOL TO BE ADMINISTERED. PT DENIES OF ANY OTHER PAINS OR DISCOMFORTS. ALL SAFETY PRECAUTIONS ARE IN PLACE. WILL CONTINUE TO MONITOR
--- NOTE | 2020-11-02 09:49 | NUR ---
PT BACK FROM CT. PT ASSISTED BACK INTO BED. IVF RECONNECTED. PT DENIES OF ANY NEEDS AT THIS TIME. ALL SAFETY AND ISOLATION PRECAUTIONS ARE IN PLACE WITH CALL LIGHT IN REACH. WILL CONTUINUE TO MONITOR
[2020-11-02 10:30] VITALS: BP 119/50
--- NOTE | 2020-11-02 10:33 | NUR ---
SPEECH THERAPY AT BEDSIDE
--- NOTE | 2020-11-02 12:26 | NUR ---
PT SITTING IN CHAIR. RESPIRATIONS REMAINS EVEN AND UNLABORED. IVF INFUSING WITH EASE, SITE APPEARS HEALTHY AND PATENT.TELE MONITORING IN PLACE. PT DENIES OF ANY PAINS OR DICOMFORTS. ALL SAFETY PRECAUTIONS ARE IN PLACE. WILL CONTINUE TO MONITOR
--- NOTE | 2020-11-02 14:28 | NUR ---
PT EDUACTED ON DISCHARGE INSRTRUCTIONS. PT VERBALIZED UNDERSTANDING. IV REMOVED WITH CATHATER INTACT. PT TOLERATED WELL. TELE MONITORING REMOVED. ER MONITORING INFORMED. PT TO BED DISCHARGED WITH [facility]. CARDS FOR CARDIOOLOGIST AND PCP PROVEDED. WAITING FOR TRANSPORTATION.
--- NOTE | 2020-11-02 15:10 | NUR ---
Discharge instructions given. Patient verbalizes understanding of same. Discharged in stable condition via Wheelchair to Home with staff. All belongings sent with pt. PT DISCHARGED IN STABLE CONDITION VIA WHEELCHAIR ACCOMPAINED BY TEJ ALEX WITH ALL DICHARGE PAPERWORK AND BELONGINGS
== END 2020-11-02 15:11 | disposition home or self-care (01) ==
LOC: ED 12:42 → ED-I 13:43 → ED 14:36 → MS2 14:37
PROVIDERS: Family Medicine; Internal Medicine; Nurse Practitioner; ADMIT Internal Medicine; ATTEND Internal Medicine
PROC: 3E02340 Introduction of Influenza Vaccine into Muscle, Percutaneous Approach (ICD-10-PCS; principal; 2020-11-02)
PROC: 3E0234Z Introduction of Serum, Toxoid and Vaccine into Muscle, Percutaneous Approach (ICD-10-PCS; 2020-11-02)
DX: R42 Dizziness and giddiness (principal); I69.398 Other sequelae of cerebral infarction; R49.9 Unspecified voice and resonance disorder; I69.351 Hemiplegia and hemiparesis following cerebral infarction affecting right dominant side; F31.9 Bipolar disorder, unspecified; E03.9 Hypothyroidism, unspecified; G30.9 Alzheimer's disease, unspecified; F02.80 Dementia in other diseases classified elsewhere, unspecified severity, without behavioral disturbance, psychotic disturbance, mood disturbance, and anxiety; I10 Essential (primary) hypertension; E78.5 Hyperlipidemia, unspecified; I25.10 Atherosclerotic heart disease of native coronary artery without angina pectoris; F41.9 Anxiety disorder, unspecified; Z23 Encounter for immunization; Z91.041 Radiographic dye allergy status; Z20.822 Contact with and (suspected) exposure to COVID-19
CPT/HCPCS: G0378; J1650